=== PATIENT | male | born 1985 | race Caucasian/White ===

== ENCOUNTER 2023-05-21 11:58 | Emergency (ER) | payer BC, OTHER, SELFPAY ==
--- NOTE | 2023-05-21 12:16 | ED.BACK ---
HPI - Back Pain/Injury General Chief Complaint: Back Pain/Injury Stated Complaint: back pain Time Seen by Provider: 05/21/23 12:25 Source: patient Mode of arrival: ambulatory Limitations: no limitations History of Present Illness HPI Narrative: 37 yo male with no known medical history here with complaints of left sided back pain x 3-4 days with radiation to the left buttocks. No numbness, tingling, incontinent episodes, fevers or chills. 1 week ago he stubbed the left foot. He did feel some pain in his back but this see mild. He was able to work this week but over the last 3-4 days the pain has been progressing and not relieved with ibuprofen at home. Patient arrives ambulatory. Related Data Previous Rx's Medication Instructions Recorded cyclobenzaprine 10 mg tablet 10 mg PO TID PRN muscle spasm #15 05/21/23 tabs naproxen 500 mg tablet 500 mg PO BID PRN pain #30 tabs 05/21/23 Allergies Allergy/AdvReac Type Severity Reaction Status Date / Time No Known Allergies Allergy Verified 05/21/23 12:17 Review of Systems Review of Systems: Yes all other systems are reviewed and are negative Constitutional: Constitutional: Reports no additional constitutional complaints, Denies body ache(s), Denies chills, Denies fever(s), Denies headache(s) and Denies weakness Eyes: Eyes: Reports no additional eye complaints and Denies change in vision ENT: Reports system reviewed and no additional complaints, except as documented, Denies dizziness, Denies headache(s), Denies nasal congestion, Denies nasal discharge and Denies neck pain Cardiovascular: Cardiovascular: Reports no additional cardiovascular complaints, Denies chest pain, Denies leg edema and Denies dyspnea Respiratory: Respiratory: Reports no additional respiratory complaints, Denies cough and Denies dyspnea Gastrointestinal: Gastrointestinal: Reports no additional gastrointestinal complaints, Denies abdominal pain, Denies diarrhea, Denies nausea and Denies vomiting Genitourinary: Genitourinary: Denies urinary incontinence Musculoskeletal: Musculoskeletal: Reports no additional musculoskeletal complaints, Reports back pain, Denies arthralgias, Denies joint swelling, Denies neck pain, Denies numbness, Reports radiating pain into limb and Denies tingling Integumentary/Breasts: Skin/Breast: Reports system reviewed and no additional complaints, except as docu and Denies rash Neurologic: Reports system reviewed and no additional complaints, except as documented, Denies Abnormal speech present, Denies dizziness, Denies headache(s), Denies numbness, Denies tingling and Denies weakness PMFSH Past Medical History Attestation statement: The following information was validated with the patient. Source: old records reviewed and nursing notes reviewed Physical Exam Vital Signs: Vital Signs: Last Vital Signs Temp 98.3 F 05/21/23 12:17 Pulse 97 05/21/23 12:17 Resp 16 05/21/23 12:17 BP 133/82 05/21/23 12:17 Pulse Ox 97 05/21/23 12:17 O2 Del Method Room Air 05/21/23 12:17 BMI result Body Mass Index 24.9 Const: General: cooperative, healthy appearing, comfortable and no acute distress Orientation/consciousness: patient oriented x3 Limitations: no limitations HEENT: Head: Yes normal to inspection Ears: hearing grossly normal bilaterally General nose exam: Normal external nose present Face and sinus: Yes normal facial exam Mouth: Normal oral and palatal mucosa present Throat: Yes posterior oropharynx normal Eyes: General: appearance normal, both eyes and all related structures Pupils: Equal, round and reactive pupils present Neck: Neck: Yes normal visual inspection Chest: Chest palpation & inspection: normal inspection of the chest Resp: Effort & Inspection: normal respiratory effort Auscultation: clear to auscultation bilaterally Cardio: Rate: regular rate Rhythm: regular rhythm Peripheral pulses: Peripheral pulses 2+ throughout GI: Inspection: Yes normal to inspection Palpation (GI): Soft to palpation and nontender Auscultation: normal bowel sounds Back/Spine/Pelvis: Other: TTP to the left lumbar soft tissue area, left SI joint and left buttocks. Worsened with flexion/extension of lumbar spine Thoracic/Lumbar Spine: thoracic and lumbar spine normal to inspection Skin: General skin exam: no rashes or lesions noted Neuro: General: patient oriented x3, moves all extremities, no focal motor deficits and normal sensation to monofilament Cranial nerves: Yes Equal, round and reactive pupils present Cognition (Neuro): normal cognition Speech: No Abnormal speech present Gait exam (Neuro): Normal gait present Motor exam (neuro): 5/5 motor strength present throughout Sensory Exam: Normal double simultaneous stimulation for sensation Deep tendon reflexes (DTR's): Right patellar reflex intensity grade: 2+ and Left patellar reflex intensity grade: 2+ Extrem: General: Yes normal to inspection Course Course Course Narrative: This is a rapid medical exam. Deferred additional HPI, ROS, PE to primary provider. 3 Medical Decision Making Medical Decision Making [facility] Narrative: 37 yo male with no known medical history here with complaints of left sided back pain x 3-4 days with radiation to the left buttocks. No numbness, tingling, incontinent episodes, fevers or chills. 1 week ago he stubbed the left foot. He did feel some pain in his back but this see mild. He was able to work this week but over the last 3-4 days the pain has been progressing and not relieved with ibuprofen at home. Patient arrives ambulatory. TTP to the left lumbar soft tissue area, left SI joint and left buttocks. Worsened with flexion/extension of lumbar spine No neuro deficits or red flag symptoms Likely lumbar radiculopathy. Low concern for fracture/bony abnormality with no reports of fall or trauma. May benefit from outpatient MRI for continued symptoms. No clinical findings to suggest need for emergent MRI today. Will send home with NSAID, muscle relaxant. Reviewed worrisome signs and symptoms of when to return to the emergency room. Comfortable plan for discharge home. Differential Diagnosis Differential Diagnoses: The differential diagnosis associated with the presentation includes Low concern for cauda equina, cord compression, malignancy, epidural abscess, fracture, AAA, renal colic, pyelo, ACS-normal neuro with no deficits or red flag symptoms, with gradual onset, with no history of immunocompromised state or IVDA Admission/Observation Consideration of admission/observation: Escalation of care including admission/observation considered No neurological deficits or red flag symptoms suggest need for emergent MRI, neurosurgery consultation urgently and or admission Tests considered The following testing was considered but not selected: No need for x-ray with no history of trauma or injury, no need for emergent MRI with normal neuro exam with no focal deficits or red flag symptoms Prescription Management I considered prescription management with: Pain Medication Discharge Plan Discharge Clinical Impression: Left lumbar radiculopathy Patient Disposition: Home, Self-Care Instructions: Lumbar Radiculopathy (ED) Additional Instructions: Heat or ice Gentle stretching No heavy lifting or bending Take the medications as prescribed Follow-up with your PCP for any continued symptoms as you may need an outpatient MRI as discussed Return for incontinence of urine/stool, fever >100.4, numbness in the groin Prescriptions: New naproxen 500 mg tablet 500 mg PO BID PRN (Reason: pain) Qty: 30 0RF cyclobenzaprine 10 mg tablet 10 mg PO TID PRN (Reason: muscle spasm) Qty: 15 0RF Referrals: ED Physician,Generic [Physician] - 1 week Stand Alone Forms: Work/School Release
[2023-05-21 12:17] VITALS: BP 133/82; PULSE 97; RESP 16; TEMP 36.8; O2SAT 97; BMI 24.9
== END 2023-05-21 12:43 | disposition home or self-care (01) ==
LOC: HO.ED 12:33
PROVIDERS: Emergency Provider Emergency Medicine Emergency Medical Services
DX: M54.16 Radiculopathy, lumbar region (principal)
CPT/HCPCS: 99282; 99283